=== PATIENT | male | born 1950 | race Caucasian/White ===

== ENCOUNTER → 2017-10-04 | Outpatient (CLI) | payer MEDICARE | END | disposition home or self-care (01) | LOC: KCIC 14:17 | DX: M43.16 Spondylolisthesis, lumbar region (principal); M47.896 Other spondylosis, lumbar region | CPT/HCPCS: 72100 ==

== ENCOUNTER → 2018-06-27 | Outpatient (CLI) | payer MEDICARE ==
[2015-09-16 22:00] VITALS: BP 115/72
[~2018-06-27] MED LIST: CYCL10TA2 PO; DOCU-109 PO; FENO145T30 PO; HYDR-2761 PO; HYDR-2765 PO; HYDR-2769 PO; LISI1TAB7 PO; MELO7.5T29 PO; WARF-78 PO
--- NOTE | 2018-06-27 11:22 | RAD ---
MR of the right knee - Vazquez and Nephew protocol History: CHRONIC PAIN, VAZQUEZ AND NEPHEW PROTOCOL. Chronic pain. Preoperative exam. Technique: Images are obtained in accordance with the standard Vazquez and Nephew protocol. Note this is not a diagnostic exam, but solely for the purpose of [facility] medical inpatient services construction. Medial meniscal tear. Lateral meniscal tear. Small joint effusion. Primary osteoarthritis. Electronically signed by: Tomi Brown MD (06/27/2018 11:19 AM) [id number]
--- NOTE | 2018-06-28 16:14 | RAD ---
CR bone length study-total of 4 AP views of the right lower extremity Clinical indications: Osteoarthritis of the right knee. Preoperative evaluation. FINDINGS: Lateral skin markers are placed. No acute fracture or osteolytic process is seen. There is degenerative osteoarthritis of the lateral tibiofemoral joint compartment of the right knee. IMPRESSION: Primary degenerative osteoarthritis of the right knee. Electronically signed by: Pieter Velez MD (06/28/2018 4:10 PM) [id number]
== END | disposition home or self-care (01) ==
LOC: RAD 11:45
PROVIDERS: ATTEND Orthopaedic Surgery Sports Medicine
DX: M17.11 Unilateral primary osteoarthritis, right knee (principal); S83.242A Other tear of medial meniscus, current injury, left knee, initial encounter; S83.282A Other tear of lateral meniscus, current injury, left knee, initial encounter; M25.541 Pain in joints of right hand; G89.29 Other chronic pain; X58.XXXA Exposure to other specified factors, initial encounter; Y93.89 Activity, other specified; Y92.89 Other specified places as the place of occurrence of the external cause; Y99.8 Other external cause status
CPT/HCPCS: 73721; 77073

== ENCOUNTER → 2018-07-24 | Outpatient (CLI) | payer MEDICARE ==
[2015-09-16 22:00] VITALS: BP 115/72
[~2018-07-24] MED LIST changes: +BACL10TA PO; +BUPR150T6 PO; +HYDR-3164 PO; +LISI1TAB5 PO; +OMEP40CA5 PO
--- NOTE | 2018-07-24 14:48 | EKG ---
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
[2018-07-24 15:29] LABS: ALBUMIN 3.8 g/dL (3.4-5.0); CALCIUM 9.5 mg/dL (8.5-10.1); CREATININE 1.1 mg/dL (0.7-1.3); POTASSIUM 4.1 mmol/L (3.5-5.1)
[2018-07-24 15:30] LABS: BASO % 1 % (0-3); EOS # 0.1 x10^3/uL (0.0-0.7); EOS % 2 % (0-3); HEMATOCRIT 48.4 % (39.0-53.0); HEMOGLOBIN 16.5 g/dL (13.0-17.5); LYMPH # 1.9 x10^3/uL (1.0-4.8); LYMPH % 26 % (24-48); MEAN CORPUSCULAR HEMOGLOBIN 31 pg (25-35); MEAN CORPUSCULAR HGB CONC 34 g/dL (31-37); MEAN CORPUSCULAR VOLUME 89 fL (79-100); MONO # 0.6 x10^3/uL (0.0-1.1); MONO % 9 % (0-9); NEUT # 4.5 x10^3uL (1.8-7.7); NEUT % 63 % (31-73); PLATELET COUNT 186 x10^3/uL (140-400); RED BLOOD COUNT 5.43 x10^6/uL (4.30-5.70); RED CELL DISTRIBUTION WIDTH 13.7 % (11.5-14.5); WHITE BLOOD COUNT 7.2 x10^3/uL (4.0-11.0)
[2018-07-24 15:35] LABS: PROTHROMBIN TIME PATIENT 13.9 SEC (11.7-14.0)
--- NOTE | 2018-07-24 18:38 | RAD ---
Chest, 2 views, 07/24/2018: HISTORY: Preop evaluation for knee surgery Comparison is made to a study from 08/25/2015. The heart size and pulmonary vascularity are normal. There is mild tortuosity of the thoracic aorta. No pulmonary infiltrate is seen. There is no evidence of pleural fluid. Moderate scattered degenerative changes are present in the spine. IMPRESSION: No acute cardiopulmonary abnormality is detected. Electronically signed by: Brendan Thompson MD (07/24/2018 6:34 PM) [facility]
[2018-07-24 20:04] LABS: BILIRUBIN,URINE NEGATIVE (NEG); CLARITY,URINE CLEAR; COLOR,URINE YELLOW; NITRITE,URINE NEGATIVE (NEG); PH,URINE 5.5; PROTEIN,URINE NEGATIVE (NEG-TRACE); UROBILINOGEN,URINE 0.2 mg/dL (0.2 mg/dL)
[2018-07-24 20:14] LABS: BACTERIA,URINE 0 /HPF (0-FEW); RBC,URINE RARE /HPF (0-2); SQUAMOUS EPITHELIAL CELL,UR OCC /LPF; WBC,URINE OCC /HPF (0-4)
== END | disposition home or self-care (01) ==
LOC: SURGPAT 13:17
PROVIDERS: ATTEND Orthopaedic Surgery Sports Medicine
DX: Z01.818 Encounter for other preprocedural examination (principal); M47.894 Other spondylosis, thoracic region; Q25.46 Tortuous aortic arch
CPT/HCPCS: 36415; 71046; 80048; 81001; 82040; 85025; 85610; 85651; 85730; 87641; 93005

== ENCOUNTER 2018-08-20 19:00 | Emergency (ER) | payer MEDICARE ==
[~2018-08-20] VITALS: Ht 182.9 cm; Wt 108.9 kg
[~2018-08-20 19:00] MED LIST changes: +OXYC1TAB19 PO; +WARF-31 PO
[2018-08-20] MEDS ORDERED: MAGNESIUM CITRATE 296 ML SOLUTION. PO ONE (20:30)
--- NOTE | 2018-08-20 20:31 | PHYS DOC ---
Past Medical History Past Medical History: High Cholesterol, Hypertension Past Surgical History: Other Additional Past Surgical Histo: L KNEE, BACK X2, NECK, RT KNEE REPLACEMENT 08/06 Alcohol Use: Occasionally Drug Use: None Adult General Chief Complaint Chief Complaint: GI PROBLEM HPI HPI Patient is a 68 year old male who presents with constipation. Patient has been on narcotic pain medicines for the last 2 weeks post-knee surgery. He has had decreased amount of stool since that time and has not had a bowel movement in the past several days other than liquid feces leaking around what he perceives as a blockage in his rectum. Today this is cause some difficulty urinating given his enlarged prostate. No dysuria. No relief with a home glycerin suppository this morning. [] Review of Systems Review of Systems Constitutional: Denies fever or chills [] Eyes: Denies change in visual acuity, redness, or eye pain [] HENT: Denies nasal congestion or sore throat [] Respiratory: Denies cough or shortness of breath [] Cardiovascular: No chest pain or palpitations[] GI: Denies abdominal pain, nausea, vomiting, bloody stools or diarrhea [] : Denies dysuria or hematuria [] Musculoskeletal: Denies back pain or joint pain [] Integument: Denies rash or skin lesions [] Neurologic: Denies headache, focal weakness or sensory changes [] Endocrine: Denies polyuria or polydipsia [] All other systems were reviewed and found to be within normal limits, except as documented in this note. Current Medications Current Medications Current Medications Medications (Trade) Dose Ordered Sig/Sumanth Start Time Stop Time Status Last Admin Dose Admin Magnesium Citrate (Citroma) 296 ml 1X ONCE 08/20/18 20:30 08/20/18 20:35 DC 08/20/18 20:30 296 ML Methylnaltrexone [place] (Relistor) 12 mg 1X ONCE 08/20/18 21:45 08/20/18 21:46 UNV Allergies Allergies Allergies Coded Allergies Type Severity Reaction Last Updated Verified Corticosteroids (Glucocorticoids) Adverse Reaction Intermediate MAKES HIM HYPER 08/07/18 Yes Physical Exam Physical Exam Constitutional: Well developed, well nourished, no acute distress, non-toxic appearance. [] HENT: Normocephalic, atraumatic, bilateral external ears normal, oropharynx moist, no oral exudates, nose normal. [] Eyes: PERRLA, EOMI, conjunctiva normal, no discharge. [] Neck: Normal range of motion, no tenderness, supple, no stridor. [] Cardiovascular:Heart rate regular rhythm, no murmur [] Lungs & Thorax: Bilateral breath sounds clear to auscultation [] Abdomen: Bowel sounds normal, soft, no tenderness, no masses, no pulsatile masses. [] Skin: Warm, dry, no erythema, no rash. [] Back: No tenderness, no CVA tenderness. [] Extremities: No tenderness, no cyanosis, no clubbing, ROM intact, no edema. [] Neurologic: Alert and oriented X 3, normal motor function, normal sensory function, no focal deficits noted. [] Psychologic: Affect normal, judgement normal, mood normal. [] Current Patient Data Vital Signs Vital Signs Date Time Temp Pulse Resp B/P (MAP) Pulse Ox O2 Delivery O2 Flow Rate FiO2 08/20/18 19:25 98.1 110 16 123/64 (83) 95 Room Air 98.1 EKG EKG [] Radiology/Procedures Radiology/Procedures [] Course & Med Decision Making Course & Med Decision Making Pertinent Labs and Imaging studies reviewed. (See chart for details) ED course: Patient arrived, was placed in bed, tolerated exam well. He was noted to have brown stool in the vault that was soft. Unable to get any significant disimpaction of the stool. Milk of molasses enema was performed. This softened the stool further and disimpaction was able to be carried out to a certain level. Given that he had decreased urine output today a catheter was placed with 400 mL of urine output. Patient was able to tolerate magnesium citrate. He was given an injection of Rella store to help with the constipation due to the narcotics. Discussed future plan with patient and family who voiced understanding. All questions were answered. Medical decision making: This appears to be a case of narcotic induced constipation. Have discussed diet changes such as increased fiber with family. There is no evidence of an obstruction. No evidence of by mouth intolerance. No evidence of perforation based on physical exam.[] Dragon Disclaimer Dragon Disclaimer This electronic medical record was generated, in whole or in part, using a voice recognition dictation system. Departure Departure Impression: Primary Impression: Obstipation Disposition: HOME, SELF-CARE Condition: IMPROVED Referrals: CRISTOFER MEZA DO (PCP) Follow-up in 2 days Patient Instructions: Constipation, Adult Additional Instructions: Follow-up with your regular doctor within 2 days. Increase the fiber and fluids in your diet. Add a cereal that has "bran" or "fiber" in the name with breakfast. Talk to your primary doctor about Relistor to help with narcotic induced constipation. Return to the ER if worsening pain, recurrence of symptoms , or any other concerns. Scripts Polyethylene Glycol 3350 (MIRALAX) 119 Gm Powder 17 GM PO DAILY, #255 GM Prov: MARISSA SORIANO DO 08/20/18 MARISSA SORIANO DO Aug 20, 2018 20:31
[2018-08-20] MEDS ORDERED: POLY119P4 PO (21:58)
[2018-08-20 22:00] VITALS: BP 123/66
[2018-08-20] MEDS ORDERED: METHYLNALTREXONE 12 MG/0.6 ML VIAL. SQ ONE (22:00)
== END 2018-08-20 22:34 | disposition home or self-care (01) ==
LOC: ER 19:00
DX: K59.00 Constipation, unspecified (principal); R30.0 Dysuria; I10 Essential (primary) hypertension; E78.00 Pure hypercholesterolemia, unspecified; Z88.8 Allergy status to other drugs, medicaments and biological substances
CPT/HCPCS: 99284; A4314

== ENCOUNTER 2020-08-24 17:32 | Emergency (ER) | payer MEDICARE ==
[~2020-08-24] VITALS: Ht 182.9 cm; Wt 120.0 kg
[~2020-08-24 17:32] MED LIST changes: -BUPR150T6 PO; +BUPR150T7 PO; +FENO145T3 PO; -FENO145T30 PO; +LISI1TAB20 PO; +LISI1TAB37 PO; -LISI1TAB5 PO; -LISI1TAB7 PO; +OMEP40CA45 PO; -OMEP40CA5 PO; +POLY119P4 PO; -WARF-78 PO; +WARF5TAB2 PO
[2020-08-24 17:40] VITALS: BP 161/88
[2020-08-24 18:04] LABS: CLARITY,URINE BLOODY; COLOR,URINE RED; RBC,URINE TNTC /HPF (0-2)
[2020-08-24 18:05] LABS: BACTERIA,URINE 0 /HPF (0-FEW); WBC,URINE 20-40 /HPF (0-4)
--- NOTE | 2020-08-24 18:06 | PHYS DOC ---
Past Medical History Past Medical History: High Cholesterol, Hypertension Past Surgical History: Other Additional Past Surgical Histo: L KNEE, BACK X2, NECK, RT KNEE REPLACEMENT 08/06/2018 Smoking Status: Light Tobacco Smoker Alcohol Use: Occasionally Drug Use: None Adult General Chief Complaint Chief Complaint: PAIN ON URINATION [facility] HPI Patient is a 70 year old male with a known past medical history of hypertension presenting emergency department with new onset of dysuria. Patient states of the last 40 hours he developed worsening sensation of burning urination only when he urinates. Also notes increased urinary frequency and feels that he is noticing blood in his urine. Patient states that he does have a history of renal stones many years ago and had a previous urinary tract infection approximately 2 years ago. Denies any new sexual partners or any trauma to the area. Denies any nausea, vomiting, fever, chills, chest pain or shortness breath. Review of Systems Review of Systems Constitutional: Denies fever or chills [] Eyes: Denies change in visual acuity, redness, or eye pain [] HENT: Denies nasal congestion or sore throat [] Respiratory: Denies cough or shortness of breath [] Cardiovascular: No additional information not addressed in HPI [] GI: Denies abdominal pain, nausea, vomiting, bloody stools or diarrhea [] : Denies dysuria or hematuria [] Musculoskeletal: Denies back pain or joint pain [] Integument: Denies rash or skin lesions [] Neurologic: Denies headache, focal weakness or sensory changes [] Endocrine: Denies polyuria or polydipsia [] All other systems were reviewed and found to be within normal limits, except as documented in this note. Allergies Allergies Allergies Coded Allergies Type Severity Reaction Last Updated Verified Corticosteroids (Glucocorticoids) Adverse Reaction Intermediate MAKES HIM HYPER 08/07/18 Yes Physical Exam Physical Exam Constitutional: Well developed, well nourished, no acute distress, non-toxic appearance. [] HENT: Normocephalic, atraumatic, bilateral external ears normal, oropharynx moist, no oral exudates, nose normal. [] Eyes: PERRLA, EOMI, conjunctiva normal, no discharge. [] Neck: Normal range of motion, no tenderness, supple, no stridor. [] Cardiovascular:Heart rate regular rhythm, no murmur [] Lungs & Thorax: Bilateral breath sounds clear to auscultation [] Abdomen: Bowel sounds normal, soft, no tenderness, no masses, no pulsatile masses. [] Skin: Warm, dry, no erythema, no rash. [] Back: No tenderness, no CVA tenderness. [] Extremities: No tenderness, no cyanosis, no clubbing, ROM intact, no edema. [] Neurologic: Alert and oriented X 3, normal motor function, normal sensory function, no focal deficits noted. [] Psychologic: Affect normal, judgement normal, mood normal. [] Current Patient Data Vital Signs Vital Signs Date Time Temp Pulse Resp B/P (MAP) Pulse Ox O2 Delivery O2 Flow Rate FiO2 08/24/20 17:40 97.9 101 18 161/88 (112) 99 Room Air 97.9 Lab Values Laboratory Tests Test 08/24/20 17:41 Urine Collection Type Unknown Urine Color Red Urine Clarity Bloody Urine pH (<5.0-8.0) Urine Specific [place] (1.000-1.030) Urine Protein mg/dL (NEG-TRACE) Urine Glucose (UA) mg/dL (NEG) Urine Ketones (Stick) mg/dL (NEG) Urine Blood (NEG) Urine Nitrite (NEG) Urine Bilirubin (NEG) Urine Urobilinogen Dipstick mg/dL (0.2 mg/dL) Urine Leukocyte Esterase (NEG) Urine RBC Tntc /HPF (0-2) Urine WBC 20-40 /HPF (0-4) Urine Squamous Epithelial Cells Occ /LPF Urine Bacteria 0 /HPF (0-FEW) Urine Mucus Mod /LPF EKG EKG [] Radiology/Procedures Radiology/Procedures [] Course & Med Decision Making Course & Med Decision Making Pertinent Labs and Imaging studies reviewed. (See chart for details) 70M presenting with symptoms consistent of dysuria, urinary frequency and hematuria which is raise concern for urinary tract infection, cystitis, prostatitis or renal stone. Will send urine and obtain a CT scan of the abdomen pelvis to evaluate for possible renal stones. 19:33 -patient here with a large amount of blood unable to definitively determine whether or not there is urinary tract infection. CT scan without evidence of renal stone but does demonstrate a mild amount of mesenteric inflammation. Patient with nonspecific symptoms at this time but most consistent with an acute cystitis or possible developing bladder cancer. At this time we will plan to discharge the patient with urology follow-up and give a course of antibiotics to make sure that there is no underlying urinary tract infection. Dragon Disclaimer Dragon Disclaimer This electronic medical record was generated, in whole or in part, using a voice recognition dictation system. Departure Departure Impression: Primary Impression: Cystitis Disposition: 01 DC HOME SELF CARE/HOMELESS Condition: GOOD Referrals: CRISTOFER MEZA DO (PCP) Patient Instructions: Interstitial Cystitis Additional Instructions: EMERGENCY DEPARTMENT GENERAL DISCHARGE INSTRUCTIONS Thank you for coming to [facility] Emergency Department (ED) today and trusting us with you care. We trust that you had a positive experience in our Emergency Department. If you wish to speak to the department management, you may call the Director at [phone]. YOUR FOLLOW UP INSTRUCTIONS ARE FOLLOWS: 1. Do you have a private Doctor? If you do not have a private doctor, please ask for a resource list of physicians or clinics that may be able to assist you with follow up care. 2. The Emergency Physicain has interpreted your x-rays. The X-Ray specialist will also review them. If there is a change in the findings, you will be notified in 48 hours when at all possible. 3. A lab test or culture has been done, your results will be reviewed and you will be notified if you need a change in treatment. ADDITIONAL INSTRUCTIONS AND INFORMATION: 1. Your care today has been supervised by a physician who is specially trained in emergency care. Many problems require more than one evaluation for a complete diagnosis and treatment. We recommend that you schedule your follow up appointment as recommended to ensure complete treatment of you illness or injury. If you are unable to obtain follow up care and continue to have a problem, or if your condition worsens, we recommend that you return to the ED. 2. We are not able to safely determine your condition over the phone nor are we able to give sound medical advice over the phone. For these safety reasons, if you call for medical advice we will ask you to come to the ED for further evaluation. 3. If you have any questions regarding these discharge instructions please call the ED at [phone]. SAFETY INFORMATION: In the interest of safety, wellness, and injury prevention; we encourage you to wear your sealbelt, if you smoke; quite smoking, and we encourage family to use a protective helmet for bicycling and other sporting events that present an increased risk for head injury. IF YOUR SYMPTOMS WORSEN OR NEW SYMPTOMS DEVELOP, OR YOU HAVE CONCERNS ABOUT YOUR CONDITION; OR IF YOUR CONDITION WORSENS WHILE YOU ARE WAITING FOR YOUR FOLLOW UP APPOINTMENT; EITHER CONTACT YOUR PRIMARY CARE DOCTOR, THE PHYSICIAN WHOSE NAME AND NUMBER YOU WERE GIVEN, OR RETURN TO THE ED IMMEDIATELY. Scripts Doxycycline Hyclate (DOXYCYCLINE HYCLATE) 100 Mg Capsule 1 CAP PO BID for 10 Days, #20 CAP Prov: ROSS SINGH MD 08/24/20 Phenazopyridine Hcl (PYRIDIUM) 100 Mg Tablet 100 MG PO TID for dysuria for 30 Days, #90 TAB Prov: ROSS SINGH MD 08/24/20 Oxycodone HCl/Acetaminophen (Percocet 5-325 mg Tablet) 1 Each Tablet 1 TAB PO PRN BID PRN for PAIN MDD 2 Tablet(s) for 5 Days, #10 TAB 10 Refills Prov: ROSS SINGH MD 08/24/20 ROSS SINGH MD Aug 24, 2020 18:05
--- NOTE | 2020-08-24 19:02 | RAD ---
Exam: CT of abdomen and pelvis without contrast INDICATION: Abdominal pain TECHNIQUE: Sequential axial images through the abdomen and pelvis obtained without IV contrast. Sagit shahida and coronal reformatted images were reconstructed from the axial data and reviewed. Comparisons: None FINDINGS: Heart size is normal. No. Visualized lung bases are clear. No pleural Evaluation of the solid organs is limited secondary to noncontrast technique. Liver, spleen, pancreas, gallbladder and adrenals are unremarkable. No perinephric inflammation or hydronephrosis. Several nonobstructing renal calculi noted bilaterally . No ureteral calculi are seen. Bladder is decompressed not well evaluated. Prostate is not enlarged. Scattered diverticula noted in the sigmoid colon without evidence of acute diverticulitis. Appendix i s not identified. No free intra-abdominal air or fluid. No obstruction. Abdominal aorta has a normal course and caliber. No enlarged abdominal lymph nodes are identified. 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 Short- term follow-up imaging to assess for stability is recommended. Exposure: One or more of the following in the visualized dose reduction techniques were utilized for this examination: 1. Automated exposure control 2. Adjustment of the MA and/or KV according to patient size 3. Use of iterative of reconstructive technique Electronically signed by: Jennie Hanna MD (08/24/2020 7:00 PM) [facility]
[2020-08-24] MEDS ORDERED: OXYC-325 PO (19:38)
[2020-08-24] MEDS ORDERED: DOXY100C2 PO (19:39)
[2020-08-24] MEDS ORDERED: PHEN100T82 PO (19:39)
[2020-08-24] MEDS ORDERED: DOXYLAMINE SUCCINATE 25 MG TABLET PO PRN (19:45)
[2020-08-24] MEDS ORDERED: HYDROcodone/APAP 5/325MG 1 TAB TABLET PO ONE (19:45)
[2020-08-24] MEDS ORDERED: DOXYCYCLINE HYCLATE 100 MG TABLET PO ONE (20:00)
== END 2020-08-24 19:50 | disposition home or self-care (01) ==
LOC: ER 17:32
DX: N30.90 Cystitis, unspecified without hematuria (principal); R30.0 Dysuria; R20.2 Paresthesia of skin; E78.00 Pure hypercholesterolemia, unspecified; I10 Essential (primary) hypertension; Z98.890 Other specified postprocedural states; Z88.8 Allergy status to other drugs, medicaments and biological substances
CPT/HCPCS: 74176; 81001; 87086; 99284